=== PATIENT | female | born 1970 | race Caucasian/White ===

== ENCOUNTER 2018-06-04 17:24 | Emergency (ER) | payer SELFPAY ==
[~2018-06-04] VITALS: Wt 57.4 kg
[2018-06-04] MEDS ORDERED: ONDANSETRON 4 MG INJ IV STA (20:49)
[2018-06-04] MEDS ORDERED: SOD CHLORIDE 0.9% 1,000 ML IV STA ×2 (20:49→22:39)
[2018-06-04] MEDS ORDERED: HYDROmorphONE 1 MG/ML SYG IV STA ×2 (20:49→22:39)
[2018-06-04] MEDS ORDERED: CEFTRIAXONE 1 GM/50 ML (PMX) 50 ML IVPB ONE (22:30)
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
[2018-06-05 02:30] VITALS: BP 124/88; PULSE 73; RESP 14
--- NOTE | 2018-06-05 04:42 | CONS ---
Assessment/Plan Assessment/Plan Assessment/Plan (Daily) pelvic mass/ovarian neoplasm plan refer to [facility] directly Consultation Date/Type/Reason Admit Date/Time Date of Consultation: Jun 05, 2018 Type of Consult 48y.0 A1 presented ED with pelvic pain for 1day denies febrile episodes, no diarrhea or constipation or urinary symptoms.denies similar pain in the past . but mild pressure sensation on lower abdomen intermittently for the last yr or so. 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 unable to exclude possibility of malignancy ,bingo caller oncologist is not readily av ailable here at [facility]. Since patient is in stable condition ,refer to [facility] [place] or [facility] directly from here without eating for possibility of surgical intervention. result of CT scan of pelvis and u/s pelvis was sent with patient. Reason for Consultation pelvic mass Date/Time of Note DATE: 06/05/18 TIME: 04:19 Constitutional: no complaints, improved Eyes: no complaints ENT: no complaints Respiratory: no complaints Cardiovascular: no complaints Gastrointestinal: no complaints, pain, vomiting Genitourinary: no complaints Musculoskeletal: no complaints Skin: no complaints Neurologic: no complaints Endocrine: no complaints Lymphatic: no complaints Psychological: no complaints, nl mood/affect Immunologic: no complaints Past Medical History Medical History: no pertinent history Allergies: Coded Allergies: No Known Allergy (Unverified , 06/04/18) Past Surgical History x3 c/s Family History Significant Family History: cancer (mom breast ca at 60y.o) Social History Alcohol Use: none Smoking Status: Never smoker Drug Use: none Exam/Review of Systems Exam Vitals Vital Signs Date Temp Pulse Resp B/P (MAP) Pulse Ox O2 O2 Flow FiO2 Time Delivery Rate 06/05/18 73 14 124/88 97 Room Air 02:30 (100) 06/04/18 98.1 17:28 Intake and Output 06/04/18 06/04/18 06/05/18 1515:00 23:00 07:00 IntakeIntake Total 1000 ml BalanceBalance 1000 ml Constitutional: alert, oriented, well developed Psych: no complaints, nl mood/affect Head: normocephalic, atraumatic Eyes: nl conjunctiva, EOMI, nl lids, nl sclera, PERRL ENMT: nl external ears & nose, nl lips & teeth, nl nasal mucosa & septum Neck: supple, non-tender Respiratory: clear to auscultation, normal air movement Cardiovascular: regular rate and rhythm, nl pulses Gastrointestinal: soft, nl liver, spleen, non-tender, tender (mild tenderness on lower abdomen) Genitourinary - Female: nl adnexae, nl external genitalia Musculoskeletal: nl extremities to inspection, nl gait and stance Extremities: normal pulses Neurological: PROFILER OPERATOR II-XII intact, nl mental status, nl speech, nl strength Results Result Diagram: 06/04/18204606/04/182046 Results 24hrs Laboratory Tests Test 06/04/18 20:47 06/04/18 21:03 White Blood Count 13.1 H Red Blood Count 4.73 Hemoglobin 13.9 Hematocrit 41.0 Mean Corpuscular Volume 86.7 Mean Corpuscular Hemoglobin 29.4 Mean Corpuscular Hemoglobin Concent 33.9 Red Cell Distribution Width 11.9 Platelet Count 367 Mean Platelet Volume 9.0 Immature Granulocytes % 0.500 H Neutrophils % 81.6 H Lymphocytes % 14.0 L Monocytes % 3.4 Eosinophils % 0.1 Basophils % 0.4 Nucleated Red Blood Cells % 0.0 Immature Granulocytes # 0.060 H Neutrophils # 10.7 H Lymphocytes # 1.8 Monocytes # 0.4 Eosinophils # 0.0 Basophils # 0.1 Nucleated Red Blood Cells # 0.0 Prothrombin Time 11.8 L Prothrombin Time Ratio 0.9 INR International Normalized Ratio 0.86 Activated Partial Thromboplast Time 21.7 L Urine Color YELLOW Urine Clarity SLIGHTLY CLOUDY A Urine pH 5.0 Urine Specific [place] 1.029 Urine Ketones 1+ H Urine Nitrite NEGATIVE Urine Bilirubin NEGATIVE Urine Urobilinogen NEGATIVE Urine Leukocyte Esterase 1+ H Urine Microscopic RBC 6 H Urine Microscopic WBC 32 H Urine Squamous Epithelial Cells FEW Urine Mucus FEW A Urine Hemoglobin 2+ H Urine Glucose NEGATIVE Urine Total Protein NEGATIVE Sodium Level 140 Potassium Level 3.7 Chloride Level 105 Carbon Dioxide Level 20 L Anion Gap 15 H Blood Urea Nitrogen 20 Creatinine 0.49 Est Glomerular Filtrat Rate mL/min > 60 Glucose Level 164 Calcium Level 9.4 Total Bilirubin 1.0 Direct Bilirubin 0.00 Indirect Bilirubin 1.0 Aspartate Amino Transf (AST/SGOT) 23 Alanine Aminotransferase (ALT/SGPT) 25 Alkaline Phosphatase 84 Total Protein 8.1 Albumin 4.7 Globulin 3.40 H Albumin/Globulin Ratio 1.38 Lipase 78 POC Beta HCG, Qualitative NEGATIVE Imaging Imaging midline septated cystic mass 11.5x10.2x9.5 cm JOSE BLOOM MD Jun 05, 2018 04:35
== END 2018-06-05 02:46 | disposition home or self-care (01) ==
LOC: E/R 17:24
DX: N39.0 Urinary tract infection, site not specified (principal); C56.9 Malignant neoplasm of unspecified ovary
CPT/HCPCS: 36415; 74176; 76830; 76856; 80053; 81001; 81025; 83690; 85025; 85610; 85730; 96361; 96374; 96375; 96376; 99285; J0696; J1170; J2405; J7030; P9612